=== PATIENT | female | born 1955 ===

== ENCOUNTER 2024-11-11 10:33 | Day surgery (SDC) | payer OTHER ==
[~2024-11-11 10:33] MED LIST: COZAAR100 MG PO; LIPITOR20 MG; SYNTHROID88 MCG PO; VERAPAMIL ER180 MG PO
[2024-11-11] MEDS ORDERED: CEFAZOLIN SODIUM 1,000 MG VIAL ONE (16:20)
[2024-11-11] MEDS ORDERED: POVIDONE-IODINE 118 ML BOTT TOP ONE (16:20)
== END 2024-11-12 01:15 | disposition home or self-care (01) ==
LOC: CIR.AMB 10:33
PROVIDERS: ATTEND Obstetrics & Gynecology
DX: N84.0 Polyp of corpus uteri (principal); D26.1 Other benign neoplasm of corpus uteri; D25.9 Leiomyoma of uterus, unspecified